=== PATIENT | male | born 1995 | race Caucasian/White ===

== ENCOUNTER 2016-05-01 21:29 | Emergency (ER) | payer OTHER ==
[~2016-05-01] VITALS: Ht 177.8 cm; Wt 101.4 kg
[2016-05-01 21:37] VITALS: Ht 177.8 cm; Wt 101.4 kg
[2016-05-01] MEDS ORDERED: LEVO25TA5 PO (21:50)
[2016-05-01] MEDS ORDERED: MELO15TA4 PO (21:50)
[2016-05-01] MEDS ORDERED: BACL10TA PO (21:50)
[2016-05-01] MEDS ORDERED: SODIUM CHLORIDE 0.9% 1000ML 1,000 ML IV STA (22:06)
[2016-05-01] MEDS ORDERED: MoRPHine SULFATE 10 MG/ML CARP/VIAL IV STA (22:06)
[2016-05-01] MEDS ORDERED: IBUPROFEN 800 MG TAB PO STA (22:06)
[2016-05-01] MEDS ORDERED: LIDOCAINE/EPINEPHRINE 1% 20 ML VIAL INFIL ONE (22:15)
[2016-05-01] MEDS ORDERED: IBUPROFEN 200 MG TAB ONE (22:15)
[2016-05-01 22:45] LABS: BASO % 0.1 %; BASO ABS # 0.01 K/uL (0-0.2); COMPLETE YES; EOS % 0.6 %; IG% 0.2 %; LYMPH % 10.5 %; LYMPH ABS # 1.34 K/uL (1.2-3.4); MEAN CELL VOLUME 87.6 fL (80-100); MEAN CORPUSCULAR HEMOGLOBIN 30.3 pg (25-34); MEAN CORPUSCULAR HGB CONC 34.7 g/dl (32-36); MEAN PLATELET VOLUME 8.9 fL (7.4-10.4); MONO % 9.8 %; NEUT % 78.8 %; PLATELET COUNT 196 K/uL (130-400); RED BLOOD COUNT 4.91 M/uL (4.7-6.1); WHITE BLOOD COUNT 12.75 K/uL (4.8-10.8)
[2016-05-01] MEDS ORDERED: HYDROmorphone INJ 1 MG/ML SYR IV STA (23:06)
[2016-05-01 23:13] LABS: BUN/CREATININE RATIO 20.4 (10-20); CALCIUM 8.5 mg/dl (8.5-10.1)
[2016-05-01] MEDS ORDERED: CEFTRIAXONE SOD INJ 1 GM ADDVIAL IV STA (23:27)
[2016-05-01 23:52] VITALS: BP 154/63; PULSE 119; TEMP 37.6; O2SAT 93
[2016-05-02] MEDS ORDERED: SULFAMETHOXAZOLE/TRIMETHOPRIM DS 800/160MG TAB PO STA (00:09)
[2016-05-02] MEDS ORDERED: OXYC-57 PO (00:13)
[2016-05-02] MEDS ORDERED: SULF800T23 PO (00:13)
--- NOTE | 2016-05-02 00:14 | EMERGENCY ROOM VISIT NOTE ---
History First contact with patient: 22:01 Chief Complaint: BACK PAIN Stated Complaint: BACK PAIN History of Present Illness The patient is a 20 year old male who presents to the Emergency Room with complaints of a bump on his tailbone. The patient states he is unsure how long it has been there. He notes there is swelling, redness and pain. He states that it has been difficult to walk due to the pain. He denies any history of similar symptoms. He has not noticed any fevers. He has not noticed any drainage from the area. The patient denies any flulike symptoms. He rates his discomfort a 10/10. The patient reports a history of tachycardia. He sees cardiology for this. Review of Systems A complete 10-point Review of Systems was discussed with the patient, with pertinent positives and negatives listed in the History of Present Illness. All remaining Review of Systems questions can be considered negative unless otherwise specified. Social History Smoking Status: Never Smoker Current/Historical Medications Scheduled Baclofen (Lioresal), 10 MG PO BID Levothyroxine Sodium (Levothyroxine Sodium), 25 MCG PO DAILY Meloxicam (Mobic), 15 MG PO DAILY Sulfa/Trimethoprim (Bactrim Ds 800MG/160MG), 1 TAB PO BID Scheduled PRN Oxycodone/Acetaminophen 5MG/325MG (Percocet 5MG/325MG), 1-2 TABS PO Q6H PRN for Pain Allergies Coded Allergies: No Known Allergies (Unverified , 05/01/16) Physical Exam Vital Signs Date Time Temp Pulse Resp B/P Pulse Ox O2 Delivery O2 Flow Rate FiO2 05/01/16 23:52 37.6 119 18 154/63 93 Room Air 05/01/16 23:04 37.8 119 18 178/77 96 Room Air 05/01/16 21:37 39.0 130 20 151/92 96 Room Air Physical Exam VITALS: Vitals are noted on the nurse's note and reviewed by myself. Vital signs stable. GENERAL: This is a 20-year-old male, in no acute distress, nondiaphoretic, well- developed well-nourished. SKIN: There is erythema and induration of the left gluteal cleft with central fluctuance. There is no drainage. HEENT: Normocephalic. PERRLA. EOMI. Nares patent. Mucous membranes moist. Neck is supple without nuchal rigidity. HEART: Regular rate and rhythm without murmurs gallops or rubs. LUNGS: Clear to auscultation bilaterally without wheezes, rales or rhonchi. ABDOMEN: Soft, nontender. NEURO: Patient was alert and oriented to person place and time. Medical Decision & Procedures Laboratory Results 05/01/16 22:20 Red Blood Count 4.91, Mean Corpuscular Volume 87.6, Mean Corpuscular Hemoglobin 30.3, Mean Corpuscular Hemoglobin Concent 34.7, Mean Platelet Volume 8.9, Neutrophils (%) (Auto) 78.8, Lymphocytes (%) (Auto) 10.5, Monocytes (%) (Auto) 9.8, Eosinophils (%) (Auto) 0.6, Basophils (%) (Auto) 0.1, Neutrophils # (Auto) 10.04, Lymphocytes # (Auto) 1.34, Monocytes # (Auto) 1.25, Eosinophils # (Auto) 0.08, Basophils # (Auto) 0.01 05/01/16 22:20 Test 05/01/16 22:20 White Blood Count 12.75 K/uL (4.8-10.8) Red Blood Count 4.91 M/uL (4.7-6.1) Hemoglobin 14.9 g/dL (14.0-18.0) Hematocrit 43.0 % (42-52) Mean Corpuscular Volume 87.6 fL (80-100) Mean Corpuscular Hemoglobin 30.3 pg (25-34) Mean Corpuscular Hemoglobin Concent 34.7 g/dl (32-36) Platelet Count 196 K/uL (130-400) Mean Platelet Volume 8.9 fL (7.4-10.4) Neutrophils (%) (Auto) 78.8 % Lymphocytes (%) (Auto) 10.5 % Monocytes (%) (Auto) 9.8 % Eosinophils (%) (Auto) 0.6 % Basophils (%) (Auto) 0.1 % Neutrophils # (Auto) 10.04 K/uL (1.4-6.5) Lymphocytes # (Auto) 1.34 K/uL (1.2-3.4) Monocytes # (Auto) 1.25 K/uL (0.11-0.59) Eosinophils # (Auto) 0.08 K/uL (0-0.5) Basophils # (Auto) 0.01 K/uL (0-0.2) RDW Standard Deviation 41.6 fL (36.4-46.3) RDW Coefficient of Variation 13.0 % (11.5-14.5) Immature Granulocyte % (Auto) 0.2 % Immature Granulocyte # (Auto) 0.03 K/uL (0.00-0.02) Anion Gap 10.0 mmol/L (3-11) Est Creatinine Clear Calc Drug Dose 138.3 ml/min Estimated GFR () 123.3 Estimated GFR (Non- 106.4 BUN/Creatinine Ratio 20.4 (10-20) Calcium Level 8.5 mg/dl (8.5-10.1) Medications Administered Medications (Trade) Dose Ordered Sig/Leah Route Start Time Stop Time Status Last Admin Dose Admin Sodium Chloride (Nss 1000ml) 1,000 ml @ 999 mls/hr Q1H1M STAT IV 05/01/16 22:06 05/01/16 23:06 DC 05/01/16 22:21 999 MLS/HR Morphine Sulfate (MoRPHine SULFATE INJ) 8 mg NOW STAT IV 05/01/16 22:06 05/01/16 22:08 DC 05/01/16 22:23 8 MG Ibuprofen (Advil Tab) 800 mg STK-MED ONCE .ROUTE 05/01/16 22:15 05/01/16 22:18 DC 05/01/16 22:21 800 MG Hydromorphone HCl (Dilaudid Inj) 1 mg NOW STAT IV 05/01/16 23:06 05/01/16 23:07 DC 05/01/16 23:10 1 MG Ceftriaxone Sodium (Rocephin Inj) 1 gm NOW STAT IV 05/01/16 23:27 05/01/16 23:28 DC 05/01/16 23:32 1 GM Trimethoprim/ Sulfamethoxazole (Septra Ds 800/ 160MG Tab) 1 tab NOW STAT PO 05/02/16 00:09 05/02/16 00:12 DC 05/02/16 00:21 1 TAB Oxycodone/ Acetaminophen (Percocet 5/ 325MG Home Pack) 1 homepack UD ONCE PO 05/02/16 00:15 05/02/16 00:16 DC 05/02/16 00:21 1 HOMEPACK Procedure I examined the patient. Verbal consent was obtained to perform the procedure. After saline and Betadine cleansing and 6 mL of 1% buffered lidocaine anesthesia , the abscess was incised with a number 11 scalpel blade. A large amount of purulent material was released with more expressed by pressure. A swab was obtained for culture. The abscess cavity was further probed with a needle cdl team truck driver and the deep pocket expressed. The abscess cavity was then copiously irrigated with sterile saline under pressure. The area was then packed with bacitracin soaked packing. The area was cleaned with sterile saline and dressed with bacitracin and a bulky bandage. The patient tolerated the procedure well. Medical Decision Differential diagnosis includes pilonidal abscess, perirectal abscess, cellulitis, among others. The patient was evaluated as above. Labs were drawn and IV access was obtained. The patient was medicated with as above. The patient was reassessed multiple times during their stay in the emergency department and remained in stable condition. The patient is a 20-year-old male who presents today complaining of swelling of his tailbone. The patient was febrile on presentation. He has no other flulike symptoms to explain the fevers. There is no evidence of a perirectal abscess or Colin's gangrene. Labs revealed mild leukocytosis consistent with infection. The patient was given IV pain medication. Incision and drainage was performed as noted in the procedure section. The patient was given 800 mg ibuprofen with improvement of his fever. The patient does have a history of tachycardia and follows up with cardiology regarding this. He was given 1 g Rocephin and will be discharged home on Bactrim. He was given a short course of Percocet for pain. He was instructed to return for packing removal in 48 hours. Based on the patient's presentation, lab results, and imaging studies, I feel the patient is stable for outpatient treatment. The patient's case was reviewed with Dr. Lozano, ED attending physician, who agreed with my assessment and treatment plan. Discharge instructions were reviewed with the patient. The patient verbalized understanding of my assessment and treatment plan and was discharged home in good condition. [place] Drug Monitoring Program Search Results: patient reviewed within database, no issues identified Impression Primary Impression: Pilonidal abscess Departure Information Dispostion Home / Self-Care Condition GOOD Prescriptions Oxycodone/Acetaminophen 5MG/325MG (PERCOCET 5MG/325MG) Tab 1-2 TABS PO Q6H Y for Pain, #15 TAB For Initial Treatment Prov: Lora Ribera PA-C 05/02/16 Sulfa/Trimethoprim (Bactrim Ds 800MG/160MG) Tab 1 TAB PO BID for 10 Days, #20 TAB Prov: Lora Ribera PA-C 05/02/16 Referrals Shantell Castillo M.D. (PCP) Patient Instructions [facility] Additional Instructions You were seen in the Emergency Department for Incision and Drainage of a pilonidal abscess. You will NEED to return to the Emergency Department to have the packing removed/changed in 48 hours. This packing is NOT dissolvable and WILL need to be removed by a health care provider. Try to leave the packing in place until you return to the Emergency Department. You have been prescribed Percocet to be used for pain control. This is a narcotic medication. You cannot drive or consume alcohol while on this medicine. This medicine should only be used for pain that cannot be controlled with [id number] pain medicines. You were prescribed Bactrim to be taken twice daily as prescribed. This is an antibiotic. All antibiotics have the potential to cause diarrhea. Stop this medication and contact a medical provider if you were to develop any significant adverse side effects including: wheezing, shortness of breath, passing out, vomiting, or a diffuse rash. Always take antibiotics as directed and COMPLETE the ENTIRE course regardless of the improvement of your symptoms. Proper wound care is essential for adequate wound healing and infection prevention. You can shower and clean the wound with soap and water. Do not scour over the wound. Pat dry with a towel. Do not submerse the wound (i.e. bathe or dish wash) until the sutures have been removed. You can use an antibiotic ointment with a dressing over the wound for the next 3-4 days. After this time you may leave the wound dry and open to the air. If crust develops over the wound you can use a Q-tip to apply a 1:1 peroxide:water solution to clean the wound. Look for signs of infection of the wound including: increased pain, swelling, foul discharge, streaking, or increased temperature. If any of these are noticed you should return to the Emergency Department for further assessment and treatment. As with any laceration you may have received nerve damage to the surrounding tissues. This damage may or may not be permanent. For pain control, you can use the following [id number] medicines (if >12 yo): - Regular strength (325mg/tab) Tylenol (acetaminophen) 2 tabs every 4-6 hours as needed. Do not exceed 12 tablets in a 24 hour period. Avoid taking more than 4 grams (4000 mg) of Tylenol per day. This includes any other sources of acetaminophen you may take on a regular basis. - Regular strength (200 mg/tab) Advil (ibuprofen) 1-2 tabs every 4-6 hours as needed. Do not exceed a dose of 3200 mg per day. Return to the emergency department if your symptoms worsen despite treatment course outlined above.
[2016-05-02] MEDS ORDERED: PERCOCET HOME PACK PO ONE (00:15)
[2016-05-02] MEDS ORDERED: AMOX875T PO (16:04)
== END 2016-05-02 00:20 | disposition home or self-care (01) ==
LOC: C.EDB 21:30
DX: L05.01 Pilonidal cyst with abscess (principal); Z79.899 Other long term (current) drug therapy

== ENCOUNTER 2016-05-02 15:30 | Emergency (ER) | payer OTHER ==
[~2016-05-02] VITALS: Ht 177.8 cm; Wt 105.2 kg
[~2016-05-02 15:30] MED LIST: BACL10TA PO; LEVO25TA5 PO; MELO15TA4 PO; OXYC-57 PO; SULF800T23 PO
[2016-05-02 15:35] VITALS: BP 148/89; PULSE 86; TEMP 36.9; O2SAT 97; Ht 177.8 cm; Wt 105.2 kg
[2016-05-02] MEDS ORDERED: AMOX875T PO (16:04)
--- NOTE | 2016-05-02 20:47 | EMERGENCY ROOM VISIT NOTE ---
History First contact with patient: 15:40 Chief Complaint: OTHER COMPLAINT Stated Complaint: CALLED AND ASKED TO COME BACK TO ER History of Present Illness The patient is a 20 year old male who presents to the Emergency Room for recheck of his pilonidal abscess. The patient was seen in the ER yesterday for incision and drainage of a pilonidal abscess. The patient was started on Bactrim and culture was sent. Evidently someone contact the patient today, and requested he come back for recheck. The patient states his symptoms are improving after incision and drainage and antibiotics. He has not had fever or chills. He does not have other complaints. Review of Systems More than 10 systems were reviewed and otherwise negative with the exception of history of present illness. Past Medical/Surgical History No chronic medical disease Family History No pertinent family history Social History Smoking Status: Never Smoker Current/Historical Medications Scheduled Amoxicillin & Pot Clavulanate (Augmentin 875-125 mg), 1 TAB PO BID Levothyroxine Sodium (Levothyroxine Sodium), 25 MCG PO DAILY Meloxicam (Mobic), 15 MG PO DAILY Sulfa/Trimethoprim (Bactrim Ds 800MG/160MG), 1 TAB PO BID Scheduled PRN Oxycodone/Acetaminophen 5MG/325MG (Percocet 5MG/325MG), 1-2 TABS PO Q6H PRN for Pain Allergies Coded Allergies: No Known Allergies (Unverified , 05/02/16) Physical Exam Vital Signs Date Time Temp Pulse Resp B/P Pulse Ox O2 Delivery O2 Flow Rate FiO2 05/02/16 15:35 36.9 86 20 148/89 97 Room Air Pain Rating (0-10): 10.0 Physical Exam VITALS: Vitals are noted on the nurse's note and reviewed by myself. Vital signs stable. GENERAL: Well-developed, well-nourished, white male, who is in no acute distress and resting comfortably. Patient is cooperative with the examination. HEAD: Normocephalic atraumatic. HEART: Regular rate and rhythm without murmurs gallops or rubs. LUNGS: Clear to auscultation bilaterally without wheezes, rales or rhonchi. No retractions or accessory muscle use. SKIN: The skin was with a well healing incised and drained pilonidal abscess in the superior gluteal cleft. No significant cellulitis or other lesions noted Medical Decision & Procedures ED Course Physical exam and history were performed. Nursing notes and EMR were reviewed. Patient appears to have a pilonidal abscess that was incised and drained. The patient was evidently contacted by the ED, however no record of this was found or reported by the Emergency Department pharmacist or discharge nurse. A partial culture is available for review at this time. I discussed the culture results with the Emergency Department pharmacist, and we will start the patient on Augmentin to coincide with his Bactrim. The patient wound itself appears well healing, and does not require further intervention. I recommended he follow with his PCP in the next 2 days for recheck. He was otherwise invited back to the ER with any new, worsening, or concerning symptoms. The chart was completed utilizing [employer] Speech Voice Recognition Software. Grammatical errors, random word insertions, pronoun errors, and incomplete sentences are an occasional consequence of this system due to software limitations, ambient noise, and hardware issues. Any formal questions or concerns about the content, text, or information contained within the body of this dictation should be directly addressed to the provider for clarification. . Medical Decision Differential diagnosis: Etiologies such as cellulitis, abscess, MRSA infection, DVT, necrotizing fasciitis, dermatitis, drug eruption, as well as others were entertained.. Impression Primary Impression: Pilonidal abscess Departure Information Dispostion Home / Self-Care Condition GOOD Prescriptions Amoxicillin & Pot Clavulanate (Augmentin 875-125 mg) 1 Tab Tab 1 TAB PO BID, #20 TAB Prov: Ryan Reich PA-C 05/02/16 Forms HOME CARE DOCUMENTATION FORM, IMPORTANT VISIT INFORMATION Patient Instructions [facility] Additional Instructions You were seen and evaluated today on an emergency basis only. This is not a substitute for, or an effort to provide, complete comprehensive medical care. It is not possible to recognize and treat all injuries or illnesses in a single emergency department visit. For this reason it is recommended that you followup with your primary care physician in the next 1-2 days for recheck. Amoxicillin Clavulanate (Augmentin) 875mg: Take one pill twice daily for 10 days for your infection. All antibiotics can cause diarrhea. If this occurs and you feel worse or it does not resolve in 1-2 days follow up with your doctor or return to the Emergency Department as this could be signs of serious underlying problems. Any medication can cause an allergic reaction, stop the pills immediately and return to the ER for rash, hives, breathing difficulties, or swelling. Continue your medications as previously prescribed You are welcome to return to the emergency department anytime with new, worsening, or concerning symptoms.
== END 2016-05-02 16:05 | disposition home or self-care (01) ==
LOC: C.EDB 15:31 → C.EDD 16:05
DX: L05.01 Pilonidal cyst with abscess (principal); Z79.899 Other long term (current) drug therapy